=== PATIENT | male | born 1975 | race Hispanic/Latino ===

== ENCOUNTER 2018-12-22 12:37 | Emergency (ER) | payer OTHER ==
[2018-12-22 12:49] VITALS: RESP 19; O2SAT 97; BMI 34.4
[2018-12-22] MEDS ORDERED: Lidocaine 5% Patch TD STA (13:27)
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
[2018-12-22 15:36] VITALS: BP 141/89; PULSE 82; TEMP 98.4
== END 2018-12-22 15:51 | disposition home or self-care (01) ==
LOC: ED 12:37
DX: M54.9 Dorsalgia, unspecified (principal); V49.9XXA Car occupant (driver) (passenger) injured in unspecified traffic accident, initial encounter
CPT/HCPCS: 72110; 73010; 73030; 96372; 99282; J1885